=== PATIENT | male | born 1980 | race Caucasian/White ===

== ENCOUNTER 2017-05-26 22:11 | Inpatient (IN) | payer OTHER ==
[~2017-05-26] VITALS: Ht 175.3 cm; Wt 86.0 kg
[2017-05-26] MEDS ORDERED: ceFAZolin SODIUM 2 GM in IV DEXTROSE 5% 50 ML IV ONE (23:30)
[2017-05-26] MEDS ORDERED: MORPHINE SULFATE 4 MG/ML DISP.SYRIN. IV ONE (23:30)
[2017-05-26] MEDS ORDERED: IV NORMAL SALINE 1,000ML 1,000 ML IV ONE (23:30)
[2017-05-26] MEDS ORDERED: IV DEXTROSE 5% 50 ML ONE (23:49)
[2017-05-26 23:50] LABS: BASO # 0.1 x10^3/uL (0.0-0.2); BASO % 1 % (0-3); EOS # 0.7 x10^3/uL (0.0-0.7); EOS % 8 % (0-3); HEMATOCRIT 38.3 % (39.0-53.0); LYMPH # 1.9 x10^3/uL (1.0-4.8); LYMPH % 22 % (24-48); MEAN CORPUSCULAR HEMOGLOBIN 32 pg (25-35); MEAN CORPUSCULAR HGB CONC 34 g/dL (31-37); MEAN CORPUSCULAR VOLUME 94 fL (79-100); MONO # 0.7 x10^3/uL (0.0-1.1); MONO % 8 % (0-9); NEUT # 5.5 x10^3uL (1.8-7.7); NEUT % 62 % (31-73); PLATELET COUNT 186 x10^3/uL (140-400); RED BLOOD COUNT 4.09 x10^6/uL (4.30-5.70); RED CELL DISTRIBUTION WIDTH 13.2 % (11.5-14.5); WHITE BLOOD COUNT 8.9 x10^3/uL (4.0-11.0)
[2017-05-26] MEDS ORDERED: ceFAZolin SODIUM 1 GM VIAL ONE (23:50)
[2017-05-26 23:59] LABS: ALBUMIN 3.2 g/dL (3.4-5.0); ALBUMIN/GLOBULIN RATIO 0.9 (1.0-1.7); C REACTIVE PROTEIN 25.7 mg/L (0-3.3); CALCIUM 8.3 mg/dL (8.5-10.1); GFR 84.5; MAGNESIUM 2.1 mg/dL (1.8-2.4); POTASSIUM 4.2 mmol/L (3.5-5.1); TOTAL BILIRUBIN 0.4 mg/dL (0.2-1.0); TOTAL PROTEIN 6.7 g/dL (6.4-8.2)
[2017-05-27] MEDS ORDERED: ONDANSETRON PF 4 MG/2 ML VIAL. IV PRN (00:30)
[2017-05-27] MEDS ORDERED: fentaNYL PF 100 MCG/2 ML VIAL IV PRN (00:30)
[2017-05-27] MEDS ORDERED: VANCOMYCIN PER PHARMACY MC PRN (00:30)
[2017-05-27 00:51] LABS: SEDIMENTATION RATE 20 (0-15)
[2017-05-27] MEDS ORDERED: VANCOMYCIN 2 GM in IV NORMAL SALINE 500ML 500 ML IV ONE (01:00)
--- NOTE | 2017-05-27 01:02 | PHYS DOC ---
Adult General Chief Complaint Chief Complaint: ANKLE PROBLEM HPI HPI Patient is a 36-year-old male presenting to the emergency department for evaluation of right ankle foot and leg pain that has been worsening over the past several days. He says that he has a history of gout as a child but has not had any episodes since then and does not take any medications for it. He is from [facility] and traveling here for work. 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 Patient is a type I diabetic and has not been keeping track of his sugars. He says that he is able to ambulate on his right ankle but it is very ankle to put pressure on it. Patient denies any systemic fevers chills nausea or vomiting. Review of Systems Review of Systems Constitutional: Denies fever or chills [] Eyes: Denies change in visual acuity, redness, or eye pain [] HENT: Denies nasal congestion or sore throat [] Respiratory: Denies cough or shortness of breath [] Cardiovascular: No additional information not addressed in HPI [] GI: Denies abdominal pain, nausea, vomiting, bloody stools or diarrhea [] : Denies dysuria or hematuria [] Musculoskeletal: Denies back pain. + R ankle joint pain [] Integument: + skin lesions Neurologic: Denies headache, focal weakness or sensory changes [] Current Medications Current Medications Current Medications Medications (Trade) Dose Ordered Sig/Barbara Start Time Stop Time Status Last Admin Dose Admin Cefazolin Sodium (Ancef) 1 gm STK-MED ONCE 05/26/17 23:50 05/26/17 23:51 DC Cefazolin Sodium 2 gm/Dextrose 50 ml @ 100 mls/hr 1X ONCE 05/26/17 23:30 05/26/17 23:59 DC 05/26/17 00:25 100 MLS/HR Dextrose 50 ml @ As Directed STK-MED ONCE 05/26/17 23:49 05/26/17 23:50 DC Fentanyl Citrate (Fentanyl 2ml Vial) 50 mcg PRN Q2HR PRN 05/27/17 00:30 05/28/17 00:29 Morphine Sulfate (Morphine 4mg Syringe) 4 mg 1X ONCE 05/26/17 23:30 05/26/17 23:31 DC 05/26/17 00:20 4 MG Ondansetron HCl (Zofran) 4 mg PRN Q4HRS PRN 05/27/17 00:30 05/28/17 00:29 Sodium Chloride 1,000 ml @ 1,000 mls/hr 1X ONCE 05/26/17 23:30 05/27/17 00:29 DC 05/26/17 00:20 1,000 MLS/HR Vancomycin HCl (Vanco Per Pharmacy) 1 each PRN DAILY PRN 05/27/17 00:30 Vancomycin HCl 2 gm/Sodium Chloride 500 ml @ 250 mls/hr 1X ONCE 05/27/17 01:00 05/27/17 02:59 Allergies Allergies Allergies Coded Allergies Type Severity Reaction Last Updated Verified Penicillins Allergy Intermediate 05/26/17 Yes Physical Exam Physical Exam Constitutional: Well developed, well nourished, no acute distress, non-toxic appearance. [] HENT: Normocephalic, atraumatic, bilateral external ears normal, oropharynx moist, no oral exudates, nose normal. [] Eyes: PERRLA, EOMI, conjunctiva normal, no discharge. [] Neck: Normal range of motion, no tenderness, supple, no stridor. [] Cardiovascular:Heart rate regular rhythm, no murmur [] Lungs & Thorax: Bilateral breath sounds clear to auscultation [] Abdomen: Bowel sounds normal, soft, no tenderness, no masses, no pulsatile masses. [] Skin: Redness warmth and pain to palpation most noticeable on his right medial ankle that extends nursing home down his foot and approximately nursing home up his left leg. There is no subcutaneous air or bruising noted but there is multiple bite wounds on his leg. No induration or fluid collection noted on exam. Back: No tenderness, no CVA tenderness. [] Extremities: No tenderness, no cyanosis, no clubbing, ROM intact, no edema. [] Neurologic: Alert and oriented X 3, normal motor function, normal sensory function, no focal deficits noted. [] Current Patient Data Vital Signs Vital Signs Date Time Temp Pulse Resp B/P (MAP) Pulse Ox O2 Delivery O2 Flow Rate FiO2 05/26/17 00:20 20 96 Room Air Lab Results Laboratory Tests Test 05/26/17 23:30 White Blood Count 8.9 x10^3/uL (4.0-11.0) Red Blood Count 4.09 x10^6/uL (4.30-5.70) L Hemoglobin 13.0 g/dL (13.0-17.5) Hematocrit 38.3 % (39.0-53.0) L Mean Corpuscular Volume 94 fL (79-100) Mean Corpuscular Hemoglobin 32 pg (25-35) Mean Corpuscular Hemoglobin Concent 34 g/dL (31-37) Red Cell Distribution Width 13.2 % (11.5-14.5) Platelet Count 186 x10^3/uL (140-400) Neutrophils (%) (Auto) 62 % (31-73) Lymphocytes (%) (Auto) 22 % (24-48) L Monocytes (%) (Auto) 8 % (0-9) Eosinophils (%) (Auto) 8 % (0-3) H Basophils (%) (Auto) 1 % (0-3) Neutrophils # (Auto) 5.5 x10^3uL (1.8-7.7) Lymphocytes # (Auto) 1.9 x10^3/uL (1.0-4.8) Monocytes # (Auto) 0.7 x10^3/uL (0.0-1.1) Eosinophils # (Auto) 0.7 x10^3/uL (0.0-0.7) Basophils # (Auto) 0.1 x10^3/uL (0.0-0.2) Erythrocyte Sedimentation Rate 20 (0-15) H Sodium Level 137 mmol/L (136-145) Potassium Level 4.2 mmol/L (3.5-5.1) Chloride Level 102 mmol/L (98-107) Carbon Dioxide Level 26 mmol/L (21-32) Anion Gap 9 (6-14) Blood Urea Nitrogen 22 mg/dL (8-26) Creatinine 1.0 mg/dL (0.7-1.3) Estimated GFR (Cockcroft-Gault) 84.5 BUN/Creatinine Ratio 22 (6-20) H Glucose Level 343 mg/dL (70-99) H Calcium Level 8.3 mg/dL (8.5-10.1) L Magnesium Level 2.1 mg/dL (1.8-2.4) Total Bilirubin 0.4 mg/dL (0.2-1.0) Aspartate Amino Transferase (AST) 19 U/L (15-37) Alanine Aminotransferase (ALT) 27 U/L (16-63) Alkaline Phosphatase 121 U/L (46-116) H Creatine Kinase 455 U/L (39-308) H C-Reactive Protein 25.7 mg/L (0-3.3) H Total Protein 6.7 g/dL (6.4-8.2) Albumin 3.2 g/dL (3.4-5.0) L Albumin/Globulin Ratio 0.9 (1.0-1.7) L EKG EKG [] Radiology/Procedures Radiology/Procedures Right ankle with some soft tissue swelling but no obvious fracture dislocation foreign body or cortical abnormality suggesting osteomyelitis. Course & Med Decision Making Course & Med Decision Making Patient has a fairly large cellulitis. Septic joint or osteomyelitis or considerations as well however I cannot do a joint aspiration given he has a cellulitis over his joint. He does have pain with movement of that right ankle joint however it is not severe or limiting. I spoke to the hospitalist stone gang sawyer and recommended admission and Dr. Valencia accepted admission. She requested CT ankle and foot for tomorrow morning. Dragon Disclaimer Dragon Disclaimer This chart was dictated in whole or in part using Voice Recognition software in a busy, high-work load, and often noisy Emergency Department environment. It may contain unintended and wholly unrecognized errors or omissions. Departure Departure: Impression: Primary Impression: Cellulitis of right leg Additional Impressions: Diabetes mellitus Elevated C-reactive protein Elevated CK Disposition: 09 ADMITTED INPATIENT Admitting Physician: Adri Valencia Condition: STABLE Referrals: NON,STAFF (PCP) Problem Qualifiers REJI AMAYA DO May 27, 2017 01:02
--- NOTE | 2017-05-27 01:15 | NUR ---
ADMISSION: The patient, NATHAN NEAL, 36 y/o, M admitted by IZA COTA DO, was given written information regarding hospital policies, unit procedures and contact persons. Pt A/Ox4, steady gait noted. Dx: Cellulitis of right foot. Area is red, swollen, erythematic. There is a small naye on the bottom of right foot, pt reports his noticed today. Skin is not open, no weeping noted. Pic taken and wound care consulted. PMH and home meds reviewed. Pt lives at home with his . 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 SCD's for VTE. Refuses pneumo vaccine. Call light within reach. Will monitor. Valuables were checked and logged. Left in room with patient.
[2017-05-27 01:49] VITALS: BP 122/75
[2017-05-27] MEDS ORDERED: DEXTROSE 50% 25 GM / 50ML DISP.SYRIN. IV PRN (02:00)
--- NOTE | 2017-05-27 02:09 | RAD ---
INDICATION: rt ankle swelling and pain, no known injury, possible cellulitis COMPARISON: None. TECHNIQUE: Axial CT images obtained through the right ankle without contrast. One or more of the following individualized dose reduction techniques were utilized for this examination: 1. Automated exposure control; 2. Adjustment of the mA and/or kV according to patient size; 3. Use of iterative reconstruction technique. FINDINGS: Severe calcific atherosclerosis. There is edema within the subcutaneous soft tissues of the ankle and foot. No definite acute fracture or dislocation. IMPRESSION: Edema is seen within the soft tissues of the ankle and foot. This could be infectious in nature from causes such as cellulitis although sterile edema has the same appearance. Electronically signed by: Iam Hayes MD (05/27/2017 2:06 AM) [facility]
[2017-05-27] MEDS ORDERED: IV DEXTROSE 5% 50 ML ONE ×2 (02:10→02:13)
[2017-05-27] MEDS ORDERED: VANCOMYCIN 1 GM VIAL. ONE ×2 (02:11→02:14)
[2017-05-27] MEDS ORDERED: ceFAZolin SODIUM 1 GM VIAL ONE ×2 (02:11→02:13)
[2017-05-27] MEDS ORDERED: IV NORMAL SALINE 500ML 500 ML ONE ×2 (02:11→02:14)
[2017-05-27] MEDS ORDERED: INSULIN DETEMIR 300 UNITS/3 ML INSULN.PEN. SQ ONE (02:14)
[2017-05-27] MEDS ORDERED: INSULIN ASPART 300 UNITS/3 ML INSULN.PEN SQ ONE (02:15)
[2017-05-27] MEDS ORDERED: INSU300I SQ (02:52)
[2017-05-27] MEDS ORDERED: INSU100V5 SQ (02:52)
[2017-05-27] MEDS ORDERED: ACET325T9 PO (02:52)
--- NOTE | 2017-05-27 02:56 | NUR ---
NURSING: PT A TYPE I DIABETIC, FSBS CHECKED = 482. DR COTA NOTIFIED OF BLOOD SUGAR AND HOME MED RECONCILIATION. NEW ORDERS RECEIVED. NOVOLOG 20 UNITS SQ X1 NOW, ADMINISTERED. PT HUNGRY. REPORTS HE HAS NOT EATEN IN OVER 8 HOURS, BOX LUNCH PROVIDED. WILL MONITOR.
[2017-05-27] MEDS ORDERED: INSULIN ASPART 300 UNITS/3 ML INSULN.PEN SQ PRN (03:00)
--- NOTE | 2017-05-27 03:12 | NUR ---
Pharmacy Vancomycin Dosing Note S:Consulted to monitor and dose vancomycin started 05/27/17. O:NATHAN NEAL is a 36 year old M with Cellulitis . Height: 5 feet, 9 inches Weight: 85.252953 kg [place] Body Weight: 70.70 Adjusted Body Weight: 76.42 Dosing Weight: Actual Other Antibiotics: LABS: Last BUN: 22 Last Creatinine: 1 Creatinine Clearance: 110 Last WBC: 8.9 Last Platelets: 186 Tmax (past 24 hours): Microbiology: I/O: Drug Levels: Last level: on at Last dose given 05/27/17 at 0300 Vancomycin Dosing: Loading Dose: 2000 mg x1 Dosing Weight: Actual Target Trough: 10-20 A: Based on: WT AND CRCL P: 1. Begin Vancomycin 1250 mg IV q8h 2. Follow up Trough level on 05/28/17 at 1030 3. Pharmacy will continue to monitor, follow and adjust therapy as needed. REYES FLAHERTY, [facility], 05/27/17 0313
--- NOTE | 2017-05-27 04:28 | ACF ---
Admission Criteria Forms CELLULITIS Clinical Indications for Admission to Inpatient Care (Place 'X' for any and all applicable criteria): Admission is indicated for ANY ONE of the following(1)(2)(3)(4)(5): [ ]I. Limb-threatening infection [ ]II. High-risk comorbid condition as indicated by ANY ONE of the following: [ ]a) Uncontrolled diabetes (eg, HbA1c greater than 10% (0.1)) [ ]b) Cirrhosis [ ]c) Neutropenia [ ]d) Asplenia [ ]e) Immunosuppression [ ]f) Symptomatic heart failure [ ]III. Failure of outpatient therapy as indicated by ALL of the following: [ ]a) Progression or no improvement after adequate trial (minimum of 48 hours, with longer period for stable lower extremity infection) [ ]b) Adequate antibiotic regimen as indicated by use of ANY ONE of the following: [ ]i) First-generation cephalosporin (e.g., cephalexin) [ ]ii) Antistaphylococcal penicillin (e.g., dicloxacillin) [ ]iii) Penicillin-allergic patient regimen (clindamycin, extended-spectrum fluoroquinolone, or doxycycline) [ ]iv) Resistant organism (eg, methicillin-resistant Staphylococcus aureus) regimen (6) [ ]c) Outpatient intravenous therapy regimen is not appropriate due to ANY ONE of the following. (7)(8)(9)(10): [ ]i) It was tried and was not successful (eg, progression of infection). [ ]ii) It is not available or cannot be arranged in a clinically appropriate time frame (e.g., the next day). [ ]iii) Clinical presentation (eg, acuity of infection, rapidity of progression, confirmed or suspected bacteremia) is judged to require ALL of the following: [ ]1) Immediate initiation of intravenous therapy ( eg, cannot wait for next day) [ ]2) Intensity of patient monitoring and observation (eg, vital sign measurement, checks for infection progression) that cannot be provided at other than inpatient level of care [ ]IV. Mental status changes [ ]V. Bacteremia [ ]. Hemodynamic instability [ ]VII. Suspected necrotizing soft tissue infection (e.g., gas in tissue)(11)( 12) [ ]VIII. Orbital infection (13)(14) [ ]IX. Associated surgical procedure (e.g., abscess drainage, debridement) not amenable to outpatient, emergency department, or observation care [ ]X. Cutaneous gangrene [ ]XI. High fever (temperature greater than 39.5 degrees C (103.1 degrees F) (oral)) not responsive to outpatient, emergency department, or observation care therapy [X ]XIII. Inpatient admission required rather than observation care (Also use Cellulitis: Observation Care as appropriate) because of ANY ONE of the following : [ ]a) Periorbital or perineal infection that is severe or worsening [ ]b) Severe pain requiring acute inpatient management [ ]c) IV fluid to replace significant ongoing (e.g., for over 24 hours) losses (greater than 3L/m2 per day) [ ]d) Compartment syndrome monitoring (17) [ ]e) Strict or protective (eg, laminar flow) isolation [ ]f) Urgent debridement or skin grafting [ ]g) Bone or joint debridement [ ]h) Immediate inpatient surgery [ X]i) Other condition, treatment or monitoring requiring inpatient admission Extended stay beyond goal length of stay may be needed for (1)(18): [ ]a) Necrotizing soft tissue infection or fasciitis [ ]b) Gram-negative infection [ ]c) Methicillin-resistant Staphylococcal aureus (MRSA) infection [ ]d) Peripheral venous insufficiency with cellulitis [ ]e) Extensive edema [ ]f) Sepsis or continued Hemodynamic instability [ ]g) Continued high fever or mental status change [ ]h) Bacteremia [ ]i) Active serious comorbid conditions ( eg, heart failure, renal insufficiency) The original Sl[employer] content created by [employer] has been revised. The portions of the content which have been revised are identified through the use of italic text or in bold, and [facility] has neither reviewed nor approved the modified material. All other unmodified content is copyright [employer] [email or web address] Please see references footnoted in the original [email or web address] edition 2016 Admission Criteria Met?: Yes TAMELA PADILLA May 27, 2017 04:28
[2017-05-27 05:32] VITALS: BP 108/66
[2017-05-27] MEDS ORDERED: KETOROLAC 30 MG/ML VIAL. IV PRN (06:45)
[2017-05-27] MEDS ORDERED: INSULIN ASPART 300 UNITS/3 ML INSULN.PEN SQ SCH ×3 (07:30)
--- NOTE | 2017-05-27 07:54 | RAD ---
Right ankle, 3 views, 05/26/2017: History: Ankle pain, swelling No fracture or dislocation is identified. There is moderate diffuse soft tissue swelling about the ankle. Arterial calcifications are present. IMPRESSION: No acute bony abnormality is detected.
[2017-05-27] MEDS: VANCOMYCIN 1.25 GM in IV NORMAL SALINE 250ML 250 ML IV SCH ×2 (08:13→19:36)
[2017-05-27 10:08] VITALS: BP 122/71
--- NOTE | 2017-05-27 11:35 | NUR ---
FSBG 55. Patient alert, given crackers and apple juice. Dr. Valencia notified, order to reduce Novolog dose from 20units with meals to 15 units with meals. Will monitor.
[2017-05-27] MEDS: INSULIN ASPART 300 UNITS/3 ML INSULN.PEN SQ SCH ×2 (12:14→17:04)
[2017-05-27 14:22] VITALS: BP 124/73
--- NOTE | 2017-05-27 14:55 | PDOC1 ---
HISTORY & PHYSICAL DATE OF ADMISSION: 05/27/2017 HPI: HPI: This is a 36-year-old male with type 1 diabetes who presented to the emergency room complaining of right ankle and foot pain which she's had for several days of note that he has a cut on the bottom of his foot which may be the entry site. 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 PROBLEMS: Problems Medical Problems: (1) Cellulitis of right leg Status: Acute (2) Diabetes mellitus TYPE 1 Status: Acute (3) Elevated C-reactive protein Status: Acute (4) Elevated CK #5 hyperglycemia Status: Acute PAST MEDICAL HISTORY: PMH: Type 1 diabetes, gout as a child PSH: On : [place]. Smokes 1-1/2-2 packs per day. No alcohol. 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 States his immunizations are up-to-date [facility]: History positive for diabetes ALLERGIES: Allergies Coded Allergies Type Severity Reaction Last Updated Verified Penicillins Allergy Intermediate 05/26/17 Yes MEDS: MEDICATIONS: lONG ACTING AND SHORT ACTING INSULIN-PLEASE SEE MAR. Current Medications Medications (Trade) Dose Ordered Sig/Barbara Start Time Stop Time Status Last Admin Dose Admin Cefazolin Sodium (Ancef) 1 gm STK-MED ONCE 05/27/17 02:13 05/27/17 02:14 DC Cefazolin Sodium 2 gm/Dextrose 50 ml @ 100 mls/hr 1X ONCE 05/26/17 23:30 05/26/17 23:59 DC 05/26/17 00:25 100 MLS/HR Cefazolin Sodium 2 gm/Sodium Chloride 50 ml @ 100 mls/hr Q8HRS 05/27/17 07:00 05/27/17 14:07 100 MLS/HR Dextrose 50 ml @ As Directed STK-MED ONCE 05/27/17 02:13 05/27/17 02:14 DC Fentanyl Citrate (Fentanyl 2ml Vial) 50 mcg PRN Q2HR PRN he also takes short-acting and long- acting insulin please see Wm 7 00:30 05/28/17 00:29 05/27/17 02:08 50 MCG Insulin Aspart (NovoLOG) 15 units TIDAC 05/27/17 11:30 05/27/17 12:14 8 UNITS Insulin Detemir (Levemir) 300 units STK-MED ONCE 05/27/17 02:14 05/27/17 02:15 DC Ketorolac Tromethamine (Toradol) 30 mg PRN Q6HRS PRN 05/27/17 06:45 06/01/17 06:44 Morphine Sulfate (Morphine 4mg Syringe) 4 mg 1X ONCE 05/26/17 23:30 05/26/17 23:31 DC 05/26/17 00:20 4 MG Ondansetron HCl (Zofran) 4 mg PRN Q4HRS PRN 05/27/17 00:30 05/28/17 00:29 Sodium Chloride 500 ml @ As Directed STK-MED ONCE 05/27/17 02:14 05/27/17 02:15 DC Vancomycin HCl 1 each 1X ONCE 05/28/17 10:30 05/28/17 10:31 Vancomycin HCl (Vanco Per Pharmacy) 1 each PRN DAILY PRN 05/27/17 00:30 05/27/17 03:12 1 EACH Vancomycin HCl 1.25 gm/Sodium Chloride 250 ml @ 167 mls/hr Q8H 05/27/17 11:00 05/27/17 08:13 167 MLS/HR Vancomycin HCl 2 gm/Sodium Chloride 500 ml @ 250 mls/hr 1X ONCE 05/27/17 01:00 05/27/17 02:59 DC 05/27/17 02:56 250 MLS/HR VITALS: Vital Signs Date Time Temp Pulse Resp B/P (MAP) Pulse Ox O2 Delivery O2 Flow Rate FiO2 05/27/17 14:22 98.4 77 20 124/73 (90) 97 Room Air LABS: Laboratory Tests Test 05/26/17 23:30 05/27/17 01:31 05/27/17 06:56 05/27/17 07:25 White Blood Count 8.9 x10^3/uL (4.0-11.0) Red Blood Count 4.09 x10^6/uL (4.30-5.70) Hemoglobin 13.0 g/dL (13.0-17.5) Hematocrit 38.3 % (39.0-53.0) Mean Corpuscular Volume 94 fL (79-100) Mean Corpuscular Hemoglobin 32 pg (25-35) Mean Corpuscular Hemoglobin Concent 34 g/dL (31-37) Red Cell Distribution Width 13.2 % (11.5-14.5) Platelet Count 186 x10^3/uL (140-400) Neutrophils (%) (Auto) 62 % (31-73) Lymphocytes (%) (Auto) 22 % (24-48) Monocytes (%) (Auto) 8 % (0-9) Eosinophils (%) (Auto) 8 % (0-3) Basophils (%) (Auto) 1 % (0-3) Neutrophils # (Auto) 5.5 x10^3uL (1.8-7.7) Lymphocytes # (Auto) 1.9 x10^3/uL (1.0-4.8) Monocytes # (Auto) 0.7 x10^3/uL (0.0-1.1) Eosinophils # (Auto) 0.7 x10^3/uL (0.0-0.7) Basophils # (Auto) 0.1 x10^3/uL (0.0-0.2) Erythrocyte Sedimentation Rate 20 (0-15) Sodium Level 137 mmol/L (136-145) Potassium Level 4.2 mmol/L (3.5-5.1) Chloride Level 102 mmol/L (98-107) Carbon Dioxide Level 26 mmol/L (21-32) Anion Gap 9 (6-14) Blood Urea Nitrogen 22 mg/dL (8-26) Creatinine 1.0 mg/dL (0.7-1.3) Estimated GFR (Cockcroft-Gault) 84.5 BUN/Creatinine Ratio 22 (6-20) Glucose Level 343 mg/dL (70-99) Calcium Level 8.3 mg/dL (8.5-10.1) Magnesium Level 2.1 mg/dL (1.8-2.4) Total Bilirubin 0.4 mg/dL (0.2-1.0) Aspartate Amino Transf (AST/SGOT) 19 U/L (15-37) Alanine Aminotransferase (ALT/SGPT) 27 U/L (16-63) Alkaline Phosphatase 121 U/L (46-116) Creatine Kinase 455 U/L (39-308) C-Reactive Protein 25.7 mg/L (0-3.3) Total Protein 6.7 g/dL (6.4-8.2) Albumin 3.2 g/dL (3.4-5.0) Albumin/Globulin Ratio 0.9 (1.0-1.7) Glucose (Fingerstick) 482 mg/dL (70-99) 203 mg/dL (70-99) Uric Acid 5.6 mg/dL (3.5-7.2) Test 05/27/17 11:19 05/27/17 11:43 Glucose (Fingerstick) 55 mg/dL (70-99) 119 mg/dL (70-99) ROS: NEG FOR FEVER, CHILLS WEIGHT LOSS, CHEST PAIN, SHORTNESS OF BREATH, PHYSICAL EXAM: A 36-year-old in no acute distress his hearing is normal. His eyes are clear. His nose was patent clear. Throat was clear. Neck was supple without adenopathy. Lungs are clear to auscultation. Cardiovascular regular rhythm and rate without murmur. Abdomen was soft bowel sounds are positive nontender no masses palpated. Extremities left extremity without edema. Right extremity has a swollen right ankle and foot. The foot. On the bottom of foot he has a superficial cut. He does have full range of motion and pulses are intact. The extremity is mildly warm, there is slight erythema VTE PROPHYLAXIS: VTE Pharmacological Prophylaxi: No ASSESSMENT/PLAN ASSESSMENT: 1 cellulitis of the right foot and ankle #2 type 1 diabetes #3 per glycemia PLAN: Plan supplemental insulin, IV antibiotics, shower and clearing of the left foot. He is up-to-date on his tetanus. Plan for discharge tomorrow IZA COTA DO May 27, 2017 14:55
[2017-05-27 19:30] VITALS: BP 123/86
[2017-05-27] MEDS ORDERED: INSULIN DETEMIR 300 UNITS/3 ML INSULN.PEN. SQ SCH (21:00)
[2017-05-27 22:50] VITALS: BP 128/80
[2017-05-28] MEDS: VANCOMYCIN 1.25 GM in IV NORMAL SALINE 250ML 250 ML IV SCH ×2 (02:51→09:03)
[2017-05-28 04:10] LABS: HEMOGLOBIN A1C 9.1 % (4.8-5.6)
[2017-05-28 05:50] VITALS: BP 114/79
[2017-05-28 06:25] LABS: BASO # 0.1 x10^3/uL (0.0-0.2); BASO % 1 % (0-3); CALCIUM 8.2 mg/dL (8.5-10.1); CREATININE 0.7 mg/dL (0.7-1.3); EOS # 0.6 x10^3/uL (0.0-0.7); EOS % 10 % (0-3); GFR 127.6; HEMATOCRIT 37.4 % (39.0-53.0); HEMOGLOBIN 12.6 g/dL (13.0-17.5); LYMPH # 2.3 x10^3/uL (1.0-4.8); LYMPH % 35 % (24-48); MEAN CORPUSCULAR HEMOGLOBIN 32 pg (25-35); MEAN CORPUSCULAR HGB CONC 34 g/dL (31-37); MEAN CORPUSCULAR VOLUME 94 fL (79-100); MONO # 0.5 x10^3/uL (0.0-1.1); MONO % 8 % (0-9); NEUT # 3.2 x10^3uL (1.8-7.7); NEUT % 47 % (31-73); PLATELET COUNT 170 x10^3/uL (140-400); RED BLOOD COUNT 3.97 x10^6/uL (4.30-5.70); RED CELL DISTRIBUTION WIDTH 13.2 % (11.5-14.5); WHITE BLOOD COUNT 6.7 x10^3/uL (4.0-11.0)
[2017-05-28] MEDS: INSULIN ASPART 300 UNITS/3 ML INSULN.PEN SQ SCH (08:33)
[2017-05-28 08:48] LABS: VANC TR 19.1 mcg/mL (10.0-20.0)
[2017-05-28] MEDS ORDERED: DOXY100C14 PO (09:21)
--- NOTE | 2017-05-28 09:34 | PDOC3 ---
Discharge Summary Visit Information Date of Admission: May 27, 2017 Date of Discharge: May 28, 2017 Final Diagnosis Problems Medical Problems: (1) Cellulitis of right leg Status: Acute (2) Diabetes mellitus Status: Acute (3) Elevated C-reactive protein Status: Acute (4) Elevated CK Status: Acute Problems: Brief Hospital Course Allergies Allergies Coded Allergies Type Severity Reaction Last Updated Verified Penicillins Allergy Intermediate 05/26/17 Yes Vital Signs Vital Signs Date Time Temp Pulse Resp B/P (MAP) Pulse Ox O2 Delivery O2 Flow Rate FiO2 05/28/17 08:00 Room Air 05/28/17 05:50 97.7 73 18 114/79 (91) 95 Lab Results Laboratory Tests Test 05/26/17 23:30 05/27/17 01:31 05/27/17 06:56 05/27/17 07:25 White Blood Count 8.9 x10^3/uL (4.0-11.0) Red Blood Count 4.09 x10^6/uL (4.30-5.70) Hemoglobin 13.0 g/dL (13.0-17.5) Hematocrit 38.3 % (39.0-53.0) Mean Corpuscular Volume 94 fL (79-100) Mean Corpuscular Hemoglobin 32 pg (25-35) Mean Corpuscular Hemoglobin Concent 34 g/dL (31-37) Red Cell Distribution Width 13.2 % (11.5-14.5) Platelet Count 186 x10^3/uL (140-400) Neutrophils (%) (Auto) 62 % (31-73) Lymphocytes (%) (Auto) 22 % (24-48) Monocytes (%) (Auto) 8 % (0-9) Eosinophils (%) (Auto) 8 % (0-3) Basophils (%) (Auto) 1 % (0-3) Neutrophils # (Auto) 5.5 x10^3uL (1.8-7.7) Lymphocytes # (Auto) 1.9 x10^3/uL (1.0-4.8) Monocytes # (Auto) 0.7 x10^3/uL (0.0-1.1) Eosinophils # (Auto) 0.7 x10^3/uL (0.0-0.7) Basophils # (Auto) 0.1 x10^3/uL (0.0-0.2) Erythrocyte Sedimentation Rate 20 (0-15) Sodium Level 137 mmol/L (136-145) Potassium Level 4.2 mmol/L (3.5-5.1) Chloride Level 102 mmol/L (98-107) Carbon Dioxide Level 26 mmol/L (21-32) Anion Gap 9 (6-14) Blood Urea Nitrogen 22 mg/dL (8-26) Creatinine 1.0 mg/dL (0.7-1.3) Estimated GFR (Cockcroft-Gault) 84.5 BUN/Creatinine Ratio 22 (6-20) Glucose Level 343 mg/dL (70-99) Calcium Level 8.3 mg/dL (8.5-10.1) Magnesium Level 2.1 mg/dL (1.8-2.4) Total Bilirubin 0.4 mg/dL (0.2-1.0) Aspartate Amino Transf (AST/SGOT) 19 U/L (15-37) Alanine Aminotransferase (ALT/SGPT) 27 U/L (16-63) Alkaline Phosphatase 121 U/L (46-116) Creatine Kinase 455 U/L (39-308) C-Reactive Protein 25.7 mg/L (0-3.3) Total Protein 6.7 g/dL (6.4-8.2) Albumin 3.2 g/dL (3.4-5.0) Albumin/Globulin Ratio 0.9 (1.0-1.7) Glucose (Fingerstick) 482 mg/dL (70-99) 203 mg/dL (70-99) Hemoglobin A1c 9.1 % (4.8-5.6) Uric Acid 5.6 mg/dL (3.5-7.2) Test 05/27/17 11:19 05/27/17 11:43 05/27/17 16:12 05/27/17 21:26 Glucose (Fingerstick) 55 mg/dL (70-99) 119 mg/dL (70-99) 241 mg/dL (70-99) 91 mg/dL (70-99) Test 05/28/17 05:59 05/28/17 08:00 05/28/17 08:24 White Blood Count 6.7 x10^3/uL (4.0-11.0) Red Blood Count 3.97 x10^6/uL (4.30-5.70) Hemoglobin 12.6 g/dL (13.0-17.5) Hematocrit 37.4 % (39.0-53.0) Mean Corpuscular Volume 94 fL (79-100) Mean Corpuscular Hemoglobin 32 pg (25-35) Mean Corpuscular Hemoglobin Concent 34 g/dL (31-37) Red Cell Distribution Width 13.2 % (11.5-14.5) Platelet Count 170 x10^3/uL (140-400) Neutrophils (%) (Auto) 47 % (31-73) Lymphocytes (%) (Auto) 35 % (24-48) Monocytes (%) (Auto) 8 % (0-9) Eosinophils (%) (Auto) 10 % (0-3) Basophils (%) (Auto) 1 % (0-3) Neutrophils # (Auto) 3.2 x10^3uL (1.8-7.7) Lymphocytes # (Auto) 2.3 x10^3/uL (1.0-4.8) Monocytes # (Auto) 0.5 x10^3/uL (0.0-1.1) Eosinophils # (Auto) 0.6 x10^3/uL (0.0-0.7) Basophils # (Auto) 0.1 x10^3/uL (0.0-0.2) Sodium Level 136 mmol/L (136-145) Potassium Level 4.0 mmol/L (3.5-5.1) Chloride Level 105 mmol/L (98-107) Carbon Dioxide Level 27 mmol/L (21-32) Anion Gap 4 (6-14) Blood Urea Nitrogen 8 mg/dL (8-26) Creatinine 0.7 mg/dL (0.7-1.3) Estimated GFR (Cockcroft-Gault) 127.6 Glucose Level 140 mg/dL (70-99) Calcium Level 8.2 mg/dL (8.5-10.1) Glucose (Fingerstick) 146 mg/dL (70-99) Vancomycin Level Trough 19.1 mcg/mL (10.0-20.0) Vancomycin Last Dose Date 05/28/17 Vancomycin Last Dose Time 0300 Brief Hospital Course Mr. Reyes is a 36 old male who presented with swollen right foot and ankle. He had considerable swelling and erythema. It was having problems weightbearing. This certainly improved during his hospitalization. He was treated with IV antibiotics. His uric acid was was normal. He did not require a lot of along the lines of pain medication. Foot remained swollen but he did not elevate it while in the hospital. He had some transient hyperglycemia which resolved. He will be discharged on po Doxycycline. Discharge Information Condition at Discharge: Improved Follow Up: Weeks (has appt with his doctor next Thursday) Dischare Medications Current Medications Cefazolin Sodium 2 gm/Dextrose 50 ml @ 100 mls/hr 1X ONCE IV Last administered on 05/26/17 00:25; Start 05/26/17 at 23:30; Stop 05/26/17 at 23:59 ; Status DC Sodium Chloride 1,000 ml @ 1,000 mls/hr 1X ONCE IV Last administered on 00:20; Start 05/26/17 at 23:30; Stop 05/27/17 at 00:29; Status DC Morphine Sulfate (Morphine 4mg Syringe) 4 mg 1X ONCE IV Last administered on 00:20; Start 05/26/17 at 23:30; Stop 05/26/17 at 23:31; Status DC Dextrose 50 ml @ As Directed STK-MED ONCE .ROUTE ; Start 05/26/17 at 23:49; Stop 05/26/17 at 23:50; Status DC Cefazolin Sodium (Ancef) 1 gm STK-MED ONCE .ROUTE ; Start 05/26/17 at 23:50; Stop 05/26/17 at 23:51; Status DC Vancomycin HCl (Vanco Per Pharmacy) 1 each PRN DAILY PRN MC SEE COMMENTS Last administered on 05/27/17 03:12; Start 05/27/17 at 00:30 Ondansetron HCl (Zofran) 4 mg PRN Q4HRS PRN IV NAUSEA/VOMITING; Start 05/27/17 at 00:30; Stop 05/28/17 at 00:29; Status DC Fentanyl Citrate (Fentanyl 2ml Vial) 50 mcg PRN Q2HR PRN IV SEVERE PAIN Last administered on 05/27/17 02:08; Start 05/27/17 at 00:30; Stop 05/28/17 at 00:29 ; Status DC Vancomycin HCl 2 gm/Sodium Chloride 500 ml @ 250 mls/hr 1X ONCE IV Last administered on 05/27/17 02:56; Start 05/27/17 at 01:00; Stop 05/27/17 at 02:59 ; Status DC Insulin Aspart (NovoLOG) 15 units TIDAC SQ ; Start 05/27/17 at 07:30; Stop 05/27 at 07:30; Status DC Insulin Detemir (Levemir) 15 units QHS SQ Last administered on 05/27/17 21:52 ; Start 05/27/17 at 21:00 Insulin Aspart (NovoLOG) 20 units 1X ONCE SQ Last administered on 05/27/17 02 :54; Start 05/27/17 at 02:15; Stop 05/27/17 at 02:16; Status DC Dextrose 12.5 gm PRN Q15MIN PRN IV SEE COMMENTS; Start 05/27/17 at 02:00 Insulin Aspart (NovoLOG) 0-7 UNITS QIDACHS SQ ; Start 05/27/17 at 07:30; Stop at 07:30; Status DC Dextrose 50 ml @ As Directed STK-MED ONCE .ROUTE ; Start 05/27/17 at 02:10; Stop 05/27/17 at 02:11; Status DC Sodium Chloride 500 ml @ As Directed STK-MED ONCE .ROUTE ; Start 05/27/17 at 02 :11; Stop 05/27/17 at 02:12; Status DC Cefazolin Sodium (Ancef) 1 gm STK-MED ONCE .ROUTE ; Start 05/27/17 at 02:11; Stop 05/27/17 at 02:12; Status DC Vancomycin HCl 1 gm STK-MED ONCE .ROUTE ; Start 05/27/17 at 02:11; Stop at 02:12; Status DC Dextrose 50 ml @ As Directed STK-MED ONCE .ROUTE ; Start 05/27/17 at 02:13; Stop 05/27/17 at 02:14; Status DC Cefazolin Sodium (Ancef) 1 gm STK-MED ONCE .ROUTE ; Start 05/27/17 at 02:13; Stop 05/27/17 at 02:14; Status DC Insulin Detemir (Levemir) 300 units STK-MED ONCE SQ ; Start 05/27/17 at 02:14; Stop 05/27/17 at 02:15; Status DC Sodium Chloride 500 ml @ As Directed STK-MED ONCE .ROUTE ; Start 05/27/17 at 02 :14; Stop 05/27/17 at 02:15; Status DC Vancomycin HCl 1 gm STK-MED ONCE .ROUTE ; Start 05/27/17 at 02:14; Stop at 02:15; Status DC Insulin Aspart (NovoLOG) 0-7 UNITS PRN Q2HR PRN SQ ELEVATED BLOOD GLUCOSE; Start 05/27/17 at 03:00 Vancomycin HCl 1.25 gm/Sodium Chloride 250 ml @ 167 mls/hr Q8H IV Last administered on 05/28/17 09:03; Start 05/27/17 at 11:00 Vancomycin HCl 1 each 1X ONCE MC Last administered on 05/28/17 08:34; Start 05/28/17 at 10:30; Stop 05/28/17 at 10:31 Insulin Aspart (NovoLOG) 20 units TIDAC SQ Last administered on 05/27/17 08:20 ; Start 05/27/17 at 07:30; Stop 05/27/17 at 11:25; Status DC Cefazolin Sodium 2 gm/Sodium Chloride 50 ml @ 100 mls/hr Q8HRS IV Last administered on 05/28/17 05:44; Start 05/27/17 at 07:00 Ketorolac Tromethamine (Toradol) 30 mg PRN Q6HRS PRN IV MODERATE PAIN; Start at 06:45; Stop 06/01/17 at 06:44 Insulin Aspart (NovoLOG) 15 units TIDAC SQ Last administered on 05/28/17 08:33 ; Start 05/27/17 at 11:30 Active Scripts Active Reported Tylenol (Acetaminophen) 325 Mg Tablet 650 Mg PO PRN Q6HRS PRN Humulin R (Insulin Regular, Human) 100 Unit/1 Ml Vial 15 Unit SQ TIDAC Toujeo Solostar (Insulin Glargine,Hum.rec.anlog) 300 Unit/1 Ml Insuln.pen 15 Unit SQ HS Patient Instructions Patient Instuctions Typed on Discharge on [facility]. For medications, see IZA Palma DO May 28, 2017 09:34
--- NOTE | 2017-05-28 11:47 | NUR ---
Patient dismissed to home. IV site d/c'd per protocol without difficulty. Reviewed home medications, follow-up instructions, and reasons to seek immediate medical attention with patient and his dad. Received verbalization of understanding, denies questions/needs. Patient ambulated off unit, left via POV.
== END 2017-05-28 11:49 | disposition home or self-care (01) | DRG 603 ==
LOC: ER 22:11 → 1 SOUTH 05-27 00:22
PROVIDERS: ADMIT Family Medicine; ATTEND Family Medicine
DX: L03.115 Cellulitis of right lower limb (principal); M10.9 Gout, unspecified; E10.65 Type 1 diabetes mellitus with hyperglycemia; Z79.899 Other long term (current) drug therapy; Z79.1 Long term (current) use of non-steroidal anti-inflammatories (NSAID); Z79.2 Long term (current) use of antibiotics; Z79.4 Long term (current) use of insulin; Z88.0 Allergy status to penicillin
CPT/HCPCS: 36415; 73610; 73700; 80048; 80053; 80202; 82550; 82947; 83036; 83735; 84550; 85027; 85651; 86140; 96365; 96375; 99406; J0690; J1815; J2270; J3010; J3370; J7040; J7050; 99285-25; J7030